=== PATIENT | female | born 1950 | race Caucasian/White ===

== ENCOUNTER 2024-09-11 09:50 | Inpatient (IN) | payer OTHER, SELFPAY ==
[2024-09-11] VITALS (12 sets, daily range): BP systolic 114–171; BP diastolic 55–87; PULSE 81–105; RESP 12–22; TEMP 36.6–37.6; O2SAT 93–100; BMI 22.4
--- NOTE | 2024-09-11 | ECG_ITS ---
Test Reason : stroke Blood Pressure : */* mmHG Vent. Rate : 85 BPM Atrial Rate : 85 BPM P-R Int : 174 ms QRS Dur : 68 ms QT Int : 346 ms P-R-T Axes : 71 -6 88 degrees QTcB Int : 411 ms Normal sinus rhythm Low voltage QRS Cannot rule out Anteroseptal infarct , age undetermined Abnormal ECG No previous ECGs available Referred By: Radha Florse Electronically Signed By: ANTWON SALINAS
--- NOTE | ~2024-09-11 | MR_ITS ---
EXAMINATION: MR BRAIN WITHOUT CONTRAST CLINICAL INFORMATION: Dysarthria, rule out CVA. COMPARISON: None available. Correlation made with CT angiogram head and neck performed earlier same day. TECHNIQUE: MRI of the brain was obtained using routine sequences without contrast. Examination performed on a Siemens 1.5 Mel high-field unit. FINDINGS: There is no diffusion restriction. There is no intracranial hemorrhage, acute infarction, mass effect, or edema. Lateral and third ventricles are dilated somewhat out of proportion to sulcal and cisternal prominence, a finding likely representing central volume loss although a component of communicating hydrocephalus is not excluded. No shift of midline. No abnormal hemosiderin deposition is identified. There are a scattered punctate and mildly confluent foci of white matter T2 hyperintensity in the periventricular, subcortical, and hemispheric deep white matter, and central iggy. These foci are nonspecific but statistically most likely relate to small vessel ischemic changes. Midline structures appear normally formed. The pituitary gland appears normal. Posterior fossa structures appear normal. Cerebellar tonsils are appropriately located. Major flow voids are preserved within the skull base. The globes and orbital contents demonstrate right lens replacement. They are otherwise normal in appearance. Paranasal sinuses are clear bilaterally. The mastoids and tympanic cavities are normally aerated. Extracranial soft tissues demonstrate no abnormalities. No suspicious bone marrow changes are evident. Atlantoaxial joint demonstrates moderate degenerative arthrosis. MR/MR head/brain wo con IMPRESSION: 1. No evidence of intracranial hemorrhage, acute infarction, mass effect, or edema. 2. Ventricles mildly dilated out of proportion to sulcal/cisternal prominence, most likely representing central volume loss. A component of communicating hydrocephalus is not excluded. 3. [id number] changes of small vessel ischemia. Electronically signed by: Miguel Calabrese MD 09/11/2024 03:38 PM EDT
--- NOTE | ~2024-09-11 | CT_ITS ---
EXAMINATION: CTA NECK WITH CONTRAST (STROKE) CTA BRAIN WITH CONTRAST (STROKE) CLINICAL INFORMATION: Dysarthria. COMPARISON: None available. TECHNIQUE: CTA of the head and neck was performed in the axial plane from the mediastinum to the skull vertex using 70 mL Omnipaque 350 intravenous contrast. Additional reformatted multiplanar images including maximum intensity projection MIP images are generated on the CT workstation. This CT examination was performed using dose optimization techniques as appropriate, variously including the following: *Automated exposure control *Adjustment of mA and/or kV according to patient size (this includes techniques or standardized protocols for targeted exams where dose is matched to indication/reason for exam; i.e. extremities or head) *Use of iterative reconstruction technique DLP: 1425 mGy centimeter. FINDINGS: The degree of stenosis determined by criteria similar to NASCET. Brain: No acute intracranial hemorrhage, mass effect, midline shift, hydrocephalus or herniation. Bilateral multifocal patchy and confluent deep periventricular white matter hypodensity involving centrum semiovale and walton radiata. Prominence of the left lateral ventricle asymmetric with respect to the right side. Zamora-white matter differentiation is normal. Bony calvarium is intact. Old traumatic deformity, nasal bones. No air-fluid levels in the paranasal sinuses. Tympanic cavities and mastoid cells are aerated. High riding left internal jugular bulb. Chest CTA: Inadequate arterial phase acquisition. The thoracic aortic arch demonstrates normal caliber and enhancement pattern without intimal flap or focal stenosis. Mild calcified plaques in the inferior aspect. Neck CTA: Right CCA: Normal patency. No focal stenosis. No intimal flap. Right ICA: Minimal calcified plaque. Normal patency. No focal stenosis. No intimal flap. Left CCA: Normal patency. No focal stenosis. No intimal flap. Left ICA: Minimal calcified plaque. Normal patency. No focal stenosis. No intimal flap. Tortuosity in the proximal segment. Retropharyngeal trajectory. V1/V2 segment: Normal patency. No focal stenosis. No intimal flap. Right vertebral artery is slightly dominant. The origin is directly from the subclavian artery. Brain CTA: Anterior cerebral circulation: ICAs: Normal patency. No focal stenosis. No abrupt cut off. MCA's: Normal patency. No focal stenosis. No abrupt cut off. Bifurcation/trifurcation demonstrated normal vascular irregularity. ACAs: Normal patency. No focal stenosis. No abrupt cut off. Ophthalmic arteries demonstrated normal patency without vascular irregularity at the origin. Anterior communicating artery is patent. Posterior communicating arteries are patent. Posterior cerebral circulation: V3/V4 segments: Normal patency. No focal stenosis. No intimal flap. Right vertebral artery is dominant. Posterior inferior cerebellar arteries are patent. The basilar artery is patent with the diminished diameter without intimal flap. Superior cerebellar arteries are patent. senior integration architect: Hypoplastic/atretic P1 segments. No focal stenosis. No abrupt cut off. Ancillary findings: Main cerebral venous sinuses are patent without gross intraluminal filling defects. Subtle pulmonary mosaic pattern. Edmond deformity apex at C5. Old traumatic deformity, nasal bones. CT/CT angio head neck IMPRESSION: No main cerebral artery occlusion or embolus. No high degree stenosis or dissection. Questionable origin, left SUPPORT SERVICES TECH. Edmond deformity, cervical spine. Consider rheumatoid arthritis. This critical test result is communicated to: Dr. Liseth Guzman via [employer] connect at 12:25 PM on September 11, 2024. Electronically signed by: Dayne Pinto MD 09/11/2024 12:34 PM EDT
[2024-09-11 10:57] LABS: MANUAL DIFF FLAG NO
[2024-09-11 10:59] LABS: Basophils Absolute Auto 0.1 X10*3/uL (0.0-0.2); Basophils Percent Auto 0.7 % (0-2); Eosinophils Percent Auto 0.1 % (0-4); Hematocrit 38.4 % (37.0-47.0); Hemoglobin 12.7 g/dl (12.0-16.0); Imm Gran Abs Auto 0.03 X10*3/uL (0.00-0.03); Imm Gran Pct Auto 0.4 % (0.0-0.4); Lymphocytes Absolute Auto 1.1 X10*3/uL (1.2-4.9); Lymphocytes Percent Auto 14.4 % (20-40); Mean Corpuscular HGB Conc 33.1 g/dl (31.0-35.0); Mean Corpuscular Hemoglobin 31.1 pg (27.0-33.0); Mean Corpuscular Volume 94.1 fL (80.0-98.0); Mean Platelet Volume 9.8 fL (9.4-12.3); Monocytes Absolute Auto 0.6 X10*3/uL (0.1-1.2); Monocytes Percent Auto 8.1 % (2-11); Neutrophils Absolute Auto 5.6 x10*3/uL (2.0-8.3); Neutrophils Percent Auto 76.3 % (45-73); Platelet Count 269 X10*3/uL (160-400); Red Blood Count 4.08 X10*6/uL (4.20-5.50); Red Cell Distribution Width 13.5 % (11.0-16.0); White Blood Count 7.3 X10*3/uL (4.8-10.8)
[2024-09-11 11:04] LABS: Prothrombin Time 11.3 SEC (10.9-12.4)
[2024-09-11 11:07] LABS: Partial Thromboplastin Time 27.5 SEC (26.0-36.8)
[2024-09-11 11:14] LABS: Anion Gap 13 (12-20); Blood Urea Nitrogen 14 mg/dL (9-16); Calcium 9.1 mg/dL (8.4-10.2); Carbon Dioxide 24 mmol/L (22-29); Chloride 106 mmol/L (96-108); Cholesterol 167 mg/dL (<200); Creatinine Clr Calc Pharmacy 74.9; Estimated Glomerular Filt Rate > 60; Glucose Random 104 mg/dL (60-115); HDL Cholesterol 85 mg/dL (>40); LDL Cholesterol Calculated 62 mg/dL (<100); Potassium 3.8 mmol/L (3.3-5.1); Sodium 139 mmol/L (135-145); Triglycerides 103 mg/dL (<150)
--- NOTE | 2024-09-11 11:15 | ED_ITS ---
HPI - Neuro Symptoms/Deficit General Chief Complaint: Stroke Stated Complaint: Speech issues, trouble walking Time Seen by Provider: 09/11/24 11:03 Source: patient and family Mode of arrival: wheelchair Limitations: no limitations History of Present Illness ED Provider: Dr. Liseth Guzman HPI Narrative: Patient comes to the emergency room accompanied by her daughter. Patient states that yesterday at 18:30 (17 hours ago), patient was sitting at home, and when she tried to get out of the chair/couch, she noted that she not have balance. Patient states that she kept leaning towards the left side and was unable to walk straight. Patient needed assistance to walk otherwise she would have fallen. Patient denies any falls or any blood thinners. Patient states that yesterday while this was all happening, while she was trying to explain things to her family, patient had aphasia and dysarthria. The patient's daughter who is at bedside states that 2 days ago, the patient's reported that the patient was having trouble with daily tasks, seemed confused, waxing and waning so they did not think much of it. The in the morning, the patient had improvement in her speech, aphasia dysarthria nearly resolved. However, patient still had trouble walking, leaning towards the left, no falls. Related Data Allergies Allergy/AdvReac Type Severity Reaction Status Date / Time No Known Allergies Allergy Verified 09/11/24 10:02 Review of Systems 2 Review of Systems: Constitutional : No Weight loss, No Fever, No Chills, No Night Sweats, No Fatigue, No Malaise ENT/Mouth : No Hearing loss, No Ear Pain, No Nasal Congestion, No Sinus Pain, No Hoarseness, No sore throat, No Rhinorrhea, No Swallowing Difficulty Eyes: No Eye Pain, No Swelling, No Redness, No Foreign Body, No Discharge, No Vision Changes Cardiovascular : No Chest Pain, No SOB, No Dyspnea on Exertion, No Orthopnea, No Edema, No Palpitations Respiratory : No Cough, No Sputum, No Wheezing, No Smoke Exposure, No Dyspnea Gastrointestinal : No Nausea, No Vomiting, No Diarrhea, No Constipation, No abdominal Pain, No Hematochezia, No Melena Genitourinary : no irregular bleeding, No Dysuria, No Urinary Frequency, No Hematuria, No Urinary Incontinence, No Urgency, No Flank Pain, No Urinary Flow Changes, No Hesitancy Musculoskeletal : No joint pain, No Myalgias, No Joint Swelling Skin : No Skin Lesions, No rash Neuro : No headache, no dizziness, patient reported intermittent episodes of aphasia and dysarthria, patient states that her gait very wobbly and leans towards the left side, ataxia present bilaterally lower extremity Psych : No Anxiety/Panic, No Depression, No SI/HI/AH/VH, No Social Issues, Heme/Lymph: No Bruising, No Bleeding,No Lymphadenopathy Endocrine : No Polyuria, No Polydipsia, No Temperature Intolerance [facility] Past Medical History Medical History (Updated 09/11/24 @ 13:58 by Liseth Guzman MD) Hypertension Social History Social History Alcohol intake: current Alcohol intake frequency: holidays/special occasions only Smoked in Last 30 Days: No Use of substances other than those prescribed or required for medical reasons: No Advance Directives: No Advance Directives Information Provided: No Physical Exam 2 Vital Signs: Vital Signs: Last Vital Signs Temp 98.2 F 09/11/24 13:39 Pulse 88 09/11/24 13:39 Resp 18 09/11/24 13:39 BP 135/70 09/11/24 13:39 Pulse Ox 99 09/11/24 13:39 O2 Del Method Room Air 09/11/24 13:39 BMI result Body Mass Index 22.4 Const: Other: Appearance: Alert. Oriented X3. Anxious Eyes: Pupils equal, round and reactive to light. ENT: Pharynx normal. Neck: Normal inspection. Neck supple. No lymph nodes noted. No crepitus CVS: Normal heart rate and rhythm. Pulses normal. Normal S1 and S2 Respiratory: No respiratory distress. Breath sounds normal. No Wheezing. No rales Abdomen: Soft and nontender. No rigidity. No distention. Skin: Skin warm and dry. Normal skin color. Normal skin turgor. Extremities: No lower extremity edema. No Lacerations. No Rash Neuro: Oriented X 3. No motor deficit. No sensory deficit. Patient has 5/5 strength in bilateral upper extremities, 3/5 in bilateral lower extremities and bilateral UE ataxia. Patient is able to sit on the bed, Patient is able to stand but patient is able to give very small steps wobbling and patient is very unsteady Psych: calm, cooperative, tearful Course Course Course Narrative: It has been 17 hours since the patient has had symptoms. It is possible that patient may have a posterior stroke. However, patient is outside of the window of treatment by now. Patient was given aspirin CTA pending Medications Administered Discontinued Medications Generic Name Dose Route Start Last Admin Trade Name Albino PRN Reason Stop Dose Admin Iohexol 100 ml 09/11/24 12:07 09/11/24 12:07 Iohexol 350 Mg/Ml 100 Ml Infus..Btl IV 09/11/24 12:08 70 ml ONCE ONE Administration Medical Decision Making Medical Decision Making [facility] Narrative: My interpretation of labs: No significant abnormality in patient's hematology chemistry or urinalysis CT and CTA did not show any acute abnormality. We tried to ambulate the patient, patient is unable to give steps forward, patient has a wobbly gait, without assistance she would likely fall. This is all acute starting from less than 24 hours ago. I discussed the above-mentioned with the patient and her daughter. Patient does not really want to stay. However, she admits that she can not barely walk and this is something new that started less than 24 hours ago with no clear reason. I discussed the patient with Dr. Stephen and SAMEER Jackson Patient being admitted Differential Diagnosis Differential Diagnoses: The differential diagnosis associated with the presentation includes (UTI, CVA, TIA, intracranial bleed) Admission/Observation Consideration of admission/observation: Escalation of care including admission/observation considered Consult Healthcare Provider Management of the patient was discussed with: Hospitalist (I discussed the patient with Dr. Stephen) Lab Data [facility] Lab Attestation statement: I reviewed the patient's lab results. 09/11/24 10:52 09/11/24 10:52 Labs: Lab Results 09/11/24 09/11/24 Range/Units 10:52 12:29 WBC 7.3 (4.8-10.8) X10*3/uL RBC 4.08 L (4.20-5.50) X10*6/uL Hgb 12.7 (12.0-16.0) g/dl Hct 38.4 (37.0-47.0) % MCV 94.1 (80.0-98.0) fL MCH 31.1 (27.0-33.0) pg MCHC 33.1 (31.0-35.0) g/dl RDW 13.5 (11.0-16.0) % Plt Count 269 (160-400) X10*3/uL MPV 9.8 (9.4-12.3) fL Immature Gran % (Auto) 0.4 (0.0-0.4) % Neut % (Auto) 76.3 H (45-73) % Lymph % (Auto) 14.4 L (20-40) % Warrick % (Auto) 8.1 (2-11) % Eos % (Auto) 0.1 (0-4) % Baso % (Auto) 0.7 (0-2) % Lymph # (Auto) 1.1 L (1.2-4.9) X10*3/uL Warrick # (Auto) 0.6 (0.1-1.2) X10*3/uL Eos # (Auto) 0.0 (0.0-0.4) X10*3/uL Baso # (Auto) 0.1 (0.0-0.2) X10*3/uL Abs Immat Gran (auto) 0.03 (0.00-0.03) X10*3/uL Absolute Neuts (auto) 5.6 (2.0-8.3) x10*3/uL Absolute Nucleated RBC 0.000 (0.0-0.012) X10*3/uL Nucleated RBC % (auto) 0.0 (0.0-0.2) /100WBC PT 11.3 (10.9-12.4) SEC INR 1.0 (0.9-1.1) APTT 27.5 (26.0-36.8) SEC Sodium 139 (135-145) mmol/L Potassium 3.8 (3.3-5.1) mmol/L Chloride 106 (96-108) mmol/L Carbon Dioxide 24 (22-29) mmol/L Anion Gap 13 (12-20) BUN 14 (9-16) mg/dL Creatinine 0.66 (0.5-1.4) mg/dL Estim Creat Clear Calc 74.9 Estimated GFR > 60 Random Glucose 104 (60-115) mg/dL Calcium 9.1 (8.4-10.2) mg/dL Troponin I High Sens < 2.7 (<3.5-17.0) ng/L Triglycerides 103 (<150) mg/dL Cholesterol 167 (<200) mg/dL LDL Cholesterol, Calc 62 (<100) mg/dL HDL Cholesterol 85 (>40) mg/dL Urine Color Yellow Urine Appearance Clear Urine pH 6.0 (5.0-9.0) Ur Specific Beauty >= 1.030 H (1.005-1.025) Urine Protein Negative (Neg-Trace) mg/dL Urine Glucose (UA) Negative (Negative) mg/dL Urine Ketones Negative (Negative) mg/dL Urine Blood Negative (Negative) Urine Nitrite Negative (Negative) Ur Leukocyte Esterase Trace H (Negative) Urine RBC 0-2 (0-2) /HPF Urine WBC 0-5 (0-5) /HPF Ur Squamous Epith Cells 0-2 (0-2) /HPF Urine Bacteria None Seen (None Seen) Hyaline Casts 0-2 (0-2) /LPF Independent Interpretation I performed an independent interpretation of an: CT Scan Radiology Impression Discussion of test interpretation with radiology: I have reviewed the radiologist's reading. Radiologist Impression: Brain: No acute intracranial hemorrhage, mass effect, midline shift, hydrocephalus or herniation. Bilateral multifocal patchy and confluent deep periventricular white matter hypodensity involving centrum semiovale and walton radiata. Prominence of the left lateral ventricle asymmetric with respect to the right side. Zamora-white matter differentiation is normal. Bony calvarium is intact. Old traumatic deformity, nasal bones. No air-fluid levels in the paranasal sinuses. Tympanic cavities and mastoid cells are aerated. High riding left internal jugular bulb. Chest CTA: Inadequate arterial phase acquisition. The thoracic aortic arch demonstrates normal caliber and enhancement pattern without intimal flap or focal stenosis. Mild calcified plaques in the inferior aspect. Neck CTA: Right CCA: Normal patency. No focal stenosis. No intimal flap. Right ICA: Minimal calcified plaque. Normal patency. No focal stenosis. No intimal flap. Left CCA: Normal patency. No focal stenosis. No intimal flap. Left ICA: Minimal calcified plaque. Normal patency. No focal stenosis. No intimal flap. Tortuosity in the proximal segment. Retropharyngeal trajectory. V1/V2 segment: Normal patency. No focal stenosis. No intimal flap. Right vertebral artery is slightly dominant. The origin is directly from the subclavian artery. Brain CTA: Anterior cerebral circulation: ICAs: Normal patency. No focal stenosis. No abrupt cut off. MCA's: Normal patency. No focal stenosis. No abrupt cut off. Bifurcation/trifurcation demonstrated normal vascular irregularity. ACAs: Normal patency. No focal stenosis. No abrupt cut off. Ophthalmic arteries demonstrated normal patency without vascular irregularity at the origin. Anterior communicating artery is patent. Posterior communicating arteries are patent. Posterior cerebral circulation: V3/V4 segments: Normal patency. No focal stenosis. No intimal flap. Right vertebral artery is dominant. Posterior inferior cerebellar arteries are patent. The basilar artery is patent with the diminished diameter without intimal flap. Superior cerebellar arteries are patent. masking machine operator: Hypoplastic/atretic P1 segments. No focal stenosis. No abrupt cut off. Ancillary findings: Main cerebral venous sinuses are patent without gross intraluminal filling defects. Subtle pulmonary mosaic pattern. [place] deformity apex at C5. Old traumatic deformity, nasal bones. CT/CT angio head neck IMPRESSION: No main cerebral artery occlusion or embolus. No high degree stenosis or dissection. 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 [place] deformity, cervical spine. Consider rheumatoid arthritis. NIH Stroke Scale Internal: Initial- Upon Arrival Level of Consciousness: Alert Level of Consciousness Questions: Answers both questions correctly Level of Consciousness Commands: Performs both tasks correctly Best Gaze: Normal Visual: No visual loss Facial Palsy: Normal Motor Arm (Right): No drift Motor Arm (Left): No drift Motor Leg (Right): No drift Motor Leg (Left): No drift Limb Ataxia: Present in two limbs Sensory: Normal Best Language: No aphasia Dysarthia: Normal Extinction and Inattention: No abnormality Score: 2 Critical Care Time Critical Care Time Critical Care Time: Yes Total Critical Care Time: 60 Attestation: I have personally provided critical care time. Time includes review of lab data, radiology results, discussion with consultants, and monitoring for potential decompensation. Intervention performed as documented. Discharge Plan Discharge Clinical Impression: Ataxia Patient Disposition: Admitted As Inpatient Print Language: Tamazight
[2024-09-11 11:22] LABS: Troponin-I High Sensitivity < 2.7 ng/L (<3.5-17.0)
[2024-09-11 11:28] LABS: Stroke Lab Use COMPLETE
--- NOTE | 2024-09-11 11:34 | PC.NURSE ---
Patient alert and oriented. Daughter at this bedside. teletypesetter monitor maintained and NSR noted. No droop noted. Tongue midline. Difficulty with word choosing. Strength appears equal to upper extremities. No drift noted to all 4 extremities. Attempted to ambulate with poor response. Able to shuffle a few steps with difficulty. Respirations even and non-labored. Abdomen soft, non-tender with positive bowel sounds. Positive pedal pulses with no edema. Sent for CT
[2024-09-11] MEDS: iohexoL 350 MG/ML 100 ML INFUS..BTL IV (12:07)
[2024-09-11 12:40] LABS: Appearance Urine Clear; Color Urine Yellow; Glucose Urine UA Negative (Negative); Leukocyte Esterase Urine Trace (Negative); Nitrite Urine Negative (Negative); Specific Gravity - Urine >= 1.030 (1.005-1.025); UMIC TRIGGER UACC YES; Urine Blood Negative (Negative); Urine Ketones Negative (Negative); Urine Protein Negative (Neg-Trace)
[2024-09-11 12:45] LABS: Bacteria Urine None Seen (None Seen); Hyaline Casts Urine 0-2 /LPF (0-2); RBC Urine 0-2 /HPF (0-2); Squamous Epithelial Cell Urine 0-2 /HPF (0-2); WBC Urine 0-5 /HPF (0-5)
--- OUTSIDE RECORDS SUMMARY | 2024-09-11 13:29 | XMS_ITS | Clinical Summary ---
Author Organization [facility] [employer] [facility] Address [address] [place] [address] Phone Care Team Providers Care Tribal Judge Name Role Phone Tirso Higgins MD Primary Care Provider [phone] Allergies Active Allergy Reactions Criticality Noted Date Comments Tree Nuts Swelling High 08/25/2012 Medications calcium carbonate-vitamin D3 1,000 mg-20 mcg (800 unit) tablet Take 1 tablet by mouth 2 (two) times a day. 4 Active meloxicam (MOBIC) 15 mg tablet Take 1 tablet (15 mg total) by mouth 1 (one) time each day. 4 Active atorvastatin (LIPITOR) 20 mg tabletIndications:M ixed hyperlipidemia Take 1 tablet (20 mg total) by mouth 1 (one) time each day. 90 each 1 5 11/26/19 25 Active lisinopriL (PRINIVIL,ZESTRIL) 5 mg tabletIndications:P rimary hypertension Take 1 tablet (5 mg total) by mouth 1 (one) time each day. 90 each 1 5 11/26/19 25 Active amLODIPine (NORVASC) 5 mg tablet Take 1 tablet (5 mg total) by mouth 1 (one) time each day. 90 tablet 1 5 Active levothyroxine (SYNTHROID, LEVOTHROID) 100 mcg tabletIndications:H ypothyroidism, unspecified TAKE 1 TABLET DAILY 90 tablet 5 Active Active Problems Problem Noted Date Diagnosed Date Branch retinal vein occlusion of left eye (CMS/H CC V28) 10/20/2023 Osteopenia 09/26/2023 Vitreous hemorrhage of right eye (CMS/HCC V24, C [place] V28) 09/06/2022 HTN (hypertension) 08/16/2018 Left wrist pain 05/02/2017 Hyperlipidemia 01/31/2014 Insomnia 06/16/2010 Colonic adenoma 03/21/2009 Overview (04/23/2024): Looney Carpal tunnel syndrome 03/05/2008 Overview (04/23/2024): Bilat Diagnosis unknown 05/26/2006 Dupuytren's contracture 12/07/2005 Overview (04/23/2024): Laureano; left Hypothyroidism 10/25/2005 Encounters Date Type Department Care Team Description 08/25/2024 Telephone [facility] Cardiology [facility] [address] [place] [address] Tirso Higgins MD from Last 3 Months Immunizations Name Administration Dates Next Due Influenza trivalent, 0.5mL ( Fluzone High-dose) 65yo and older 02/27/2019 Moderna SARS-CoV-2 COVID-19, mRNA, LNP-S, preservative free 07/10/2020 Pneumococcal conjugate 13 va lent (Prevnar 13, PCV13) 2mo and older 11/03/2016 Pneumococcal polysaccharide 23 valent (Pneumovax 23) 2yo and older 12/05/2017 Td Tetanus diptheria (Tdvax) 7yo and older 12/05 Tdap Tetanus diptheria acell ular pertussis (Boostrix; Adacel) 7yo and older 05/31/2007 Zoster Live 10/05/2012 Zoster recombinant (Shingrix) 19yo and older Surgical History Surgery Date Site/Laterality Comments OTHER SURGICAL HISTORY 01/2008 PROCEDURE: MAMMOGRAM; COMMENT: neg OTHER SURGICAL HISTORY 05/2006 PROCEDURE: PAP SMEAR (1 SLIDE); COMMENT: Akash neg OTHER SURGICAL HISTORY 10/2018 PROCEDURE: HISTORICAL CA BASAL CELL; COMMENT: BCC 11/08 nose (nodular) COLONOSCOPY 04/08/2016 PROCEDURE: HISTORICAL COLONOSCOPY; COMMENT: adenomas, tics and hemorrhoids; repeat in 3 yrs COLONOSCOPY 08/25/2012 PROCEDURE: HISTORICAL COLONOSCOPY; COMMENT: adenoma and tics; repeat in 3 yrs COLONOSCOPY 06/12/2009 PROCEDURE: HISTORICAL COLONOSCOPY; COMMENT: adenomas and diverticulosis; repeat in three years COLONOSCOPY 02/2004 PROCEDURE: HISTORICAL COLONOSCOPY; COMMENT: diverticulosis COLONOSCOPY 02/2001 PROCEDURE: HISTORICAL COLONOSCOPY; COMMENT: Katherine CHANDRA;04; COLONOSCOPY 12/27/2019 PROCEDURE: HISTORICAL COLONOSCOPY; COMMENT: Diminutive colonic polyps x2, next colonoscopy indicated in 5 years. Pathology: Tubular adenoma x2. Medical History Medical History Date Comments Contracture of palmar fascia 12/07/2005 DX: Contracture of palmar fascia; COMMENT: left Carpal tunnel syndrome 03/05/2008 DX:Carpal tunnel syndrome; COMMENT: Bilat Colonic adenoma 03/21/2009 DX:Colonic adeno ma Unspecified hypothyroidism 10/25/2005 DX:Un specified hypothyroidism Hyperlipidemia 01/31/2014 DX:Hyperlipidemi a HTN (hypertension) 08/16/2018 DX:HTN (hyper tension) History of basal cell carcinoma 11/08/2018 DX:History of basal cell carcinoma; COMMENT: BCC 11/08 nose (nodular) Family History Medical History Relation Name Comments No Known Problems Daughter Colon cancer Father Hypertension Father Arthritis Mother Cataracts Mother Hypertension Mother Other Dermatological Disorders Mother Little spots on her face Ovarian cancer Sister No Known Problems Son Blindness Neg Hx Breast cancer Neg Hx Glaucoma Neg Hx Macular degeneration Neg Hx Strabismus Neg Hx Relation Name Status Comments Daughter Alive Father (Age 75) MVA Mother (Age 75) Alzehimers Sister Son Alive Social History Tobacco Use Types Packs/Day Years Used Date Smoking Tobacco: Never Smokeless Tobacco: Never Tobacco Cessation:Counseling Given: Not Answered Alcohol Use Standard Drinks/Week Comments Yes 0 (1 standard drink = 0.6 oz pur e alcohol) Comments No Sex and Gender Information Value Date Recorded Sex Assigned at Female 03/30/2024 12:10 PM EST Legal Sex Female 12:13 AM EST Gender Identity Female 03/30/2024 12:10 PM EST Sexual Orientation Straight 03/30/2024 12 :10 PM EST Obstetrics History Last Filed Vital Signs Vital Sign Reading Time Taken Comments Blood Pressure 128/56 05/29/2024 10:17 AM EST Pulse 96 05/29/2024 10:17 AM EST Temperature 36.4 ??C (97.6 ??F) 04/04/2024 10:[address] Respiratory Rate - - Oxygen Saturation 98% 04/04/2024 10:52 AM EST Inhaled Oxygen Concentration - - Weight 65 kg (143 lb 4.8 oz) 05/29/2024 10:17 AM EST Height 170.2 cm (5' 7 ) 05/29/2024 10:17 AM EST Body Mass Index 22.44 05/29/2024 10:17 AM EST Plan of Treatment Health Maintenance Due Date Last Done Comments Zoster Vaccines (3 of 3) 06/16/2020 04/21/2020, 09/20 Depression Screening 05/01/2022 Falls Risk Assessment 05/01/2022 Social Influencers of Health Screening 05/01/2022 Medicare Annual Wellness Visit 03/22/2023 03/22/2022 COVID-19 Vaccine ( season) 2024 05/02/2021, 08/07/2020, 07/10/2020 Colorectal Cancer Screening: Colonoscopy 12/26/2024 12/27/2019 Hypertension/CHF/CAD Annual BMP Blood Test 05/29/2025 05/29/2024, 09/26/2023, 09/26/2023 Breast Cancer Screening 04/13/2026 04/13/20 24, 03/24/2023, 03/22/2022, Additional history exists RSV Immunization Adult Patients (1 - 1-dose 75+ series) 09/16/2026 DTaP,Tdap,and Td Vaccines (3 - Td or Tdap) 12/06/2027 12/05/2017, 05/31/2007 Cholesterol Screening (Lipid Panel) 09/25/2028 09/26/2023, 09/26/2023 Osteoporosis Screening (Bone Density Screening) 06/15/2032 06/15/2022, 02/27/2019, 12/07/2016 Hepatitis C Screening Completed 10/05/2012 Pneumococcal Vaccine: 50+ Years Completed 12/05/2017, 11/03/2016 Influenza Vaccine Discontinued 02/27/2019 HIB Vaccines Aged Out No longer eligi ble based on patient's age to complete this topic HPV Vaccines Aged Out No longer eligi ble based on patient's age to complete this topic Hepatitis A Vaccines Aged Out No long er eligible based on patient's age to complete this topic Hepatitis B Vaccines Aged Out No long er eligible based on patient's age to complete this topic IPV Vaccines Aged Out No longer eligi ble based on patient's age to complete this topic MMR Vaccines Aged Out No longer eligi ble based on patient's age to complete this topic Meningococcal ACWY Vaccine Aged Out N o longer eligible based on patient's age to complete this topic Meningococcal B Vaccine Aged Out No l onger eligible based on patient's age to complete this topic RSV Immunization Patients Under 20 months Aged Out No longer eligible based on patient's age to complete this topic Varicella Vaccines Aged Out No longer eligible based on patient's age to complete this topic Procedures Procedure Name Priority Date/Time Associated Diagnosis Comments COMPREHENSIVE METABOLIC PANEL Routine 05/29/2024 10:51 AM EST Mixed hyperlipidemia MG MAMMO DIGITAL SCREENING W ADRIA BILAT Routine 04/13/2024 11:06 AM EST Encounter for screening mammogram for breast cancer LIPID PANEL Routine 09/26/2023 DXA BONE DENSITY STUDY 1+ SITS AXIAL SKEL Routine 06/15/2022 10:22 AM EST Other specified disorders of bone density and structure, unspecified site COLONOSCOPY Routine 12/27/2019 HEPATITIS C SCREENING Routine 10/05/2012 from Last 3 Months or Most Recently Relevant to Health Maintenance Results * (ABNORMAL) Comprehensive metabolic panel (05/29/2024 10:51 AM EST) Sodium 137 133 - 145 mmol/L LAB CHEMISTRY METHOD 05/29/2024 3:11 PM EST [facility] Potassium 4.7 3.5 - 5.5 mmol/L LAB CHEMISTRY METHOD 05/29/2024 3:11 PM EST [facility] Chloride 105 96 - 110 mmol/L LAB CHEMISTRY METHOD 05/29/2024 3:11 PM [facility] CO2 24 21 - 32 mmol/L LAB CHEMISTRY METHOD 05/29/2024 3:11 PM [facility] Anion Gap 8 3 - 11 LAB CHEMISTRY METHOD 05/29/2024 3:11 PM [facility] Glucose 112(H) 70 - 100 mg/dL LAB CHEMISTRY METHOD 05/29/2024 3:11 PM [facility] BUN 14 5 - 25 mg/dL LAB CHEMISTRY METHOD 05/29/2024 3:11 PM [facility] Creatinine 0.70 0.50 - 1.10 mg/dL LAB CHEMISTRY METHOD 05/29/2024 3:11 PM [facility] eGFR 92 >=60 mL/min/1. 73m2 LAB CHEMISTRY METHOD 05/29/2024 3:11 PM [facility] Comment:Calculation based on the??Chronic Kidney Disease Epidemiology Collaboration (CKD-EPI) equation refit??without adjustment for race. BUN/Creatinine Ratio 20.0 LAB CHEMISTRY METHOD 05/29/2024 3:11 PM [facility] Calcium 9.4 8.5 - 10.5 mg/dL LAB CHEMISTRY METHOD 05/29/2024 3:11 PM [facility] AST (SGOT) 26 10 - 42 unit/L LAB CHEMISTRY METHOD 05/29/2024 3:11 PM [facility] ALT (SGPT) 29 10 - 60 unit/L LAB CHEMISTRY METHOD 05/29/2024 3:11 PM [facility] Alkaline Phosphatase 70 42 - 121 unit/L LAB CHEMISTRY METHOD 05/29/2024 3:11 PM [facility] Total Protein 7.0 6.0 - 8.0 g/dL LAB CHEMISTRY METHOD 05/29/2024 3:11 PM [facility] Albumin 4.2 3.2 - 5.0 g/dL LAB CHEMISTRY METHOD 05/29/2024 3:11 PM [facility] Total Bilirubin 0.9 0.0 - 1.4 mg/dL LAB CHEMISTRY METHOD 05/29/2024 3:11 PM EST [facility] Blood Venous blood specimen / Unknown Venipuncture / Unknown 05/29/2024 10:51 AM EST 05/29/2024 10:51 AM EST us Elaine Jamil NP LAB BLOOD ORDERABLES Final Resul t [facility] [address] [place] [address], [place] [phone] * MG Mammo Digital Screening w Adria bilat (04/13/2024 11:06 AM EST) Anatomical Region Laterality Modality Breast Bilateral Mammography 04/13/2024 11:0 2 AM EST Impressions 04/13/2024 11:10 AM EST No mammographic evidence of malignancy. ?? No suspicious interval change. A negative mammogram in the presence of a clinically suspicious palpable abnormality does not preclude the possibility of malignancy or alter the indications for biopsy. ASSESSMENT: ?? BI-RADS 1: NEGATIVE RECOMMENDATION(S): 1: Routine screening mammogram BILATERAL in 1 year. -------- FINAL REPORT -------- Dictated By: Joe Arteaga Dictated Date: 04/13/2024 11:02 ET Assigned Physician: Joe Arteaga Reviewed and Electronically Signed By: Joe Arteaga Signed Date: 04/13/2024 11:10 ET Workstation ID: [id number] Transcribed By: Self Edit Transcribed Date: 04/13/2024 11:02 ET Narrative 04/13/2024 11:10 AM EST EXAM: ??SCREENING MAMMOGRAPHY, BILATERAL HISTORY: ??SCREENING. ??No additional history. COMPARISON: ??03/24/2023, 03/22/2022, 03/17/2021, 03/14/2020 TECHNIQUE: Synthesized CC and MLO projections of each breast. ??Tomosynthesis of each breast in the CC and MLO projections. ADDITIONAL IMAGING: None Computer-aided detection was employed with the iCAD ??profound AI 3-D. TISSUE DENSITY: There are scattered areas of fibroglandular density. (BI-RADS category B) FINDINGS: RIGHT BREAST: No suspicious mass. No suspicious calcification. No distortion. ?? No additional suspicious right breast findings LEFT BREAST: No suspicious mass. No suspicious calcification. No distortion. ?? No additional suspicious left breast findings Procedure Note Joe Arteaga MD - 04/13/2024 EXAM: SCREENING MAMMOGRAPHY, BILATERAL HISTORY: SCREENING. No additional history. COMPARISON: 03/24/2023, 03/22/2022, 03/17/2021, 03/14/2020 TECHNIQUE: Synthesized CC and MLO projections of each breast.Tomosynthesis of each breast in the CC and MLO projections. ADDITIONAL IMAGING: None Computer-aided detection was employed with the iCAD profound AI 3-D. TISSUE DENSITY: There are scattered areas of fibroglandular density.(BI-RADS category B) FINDINGS: RIGHT BREAST: No suspicious mass. No suspicious calcification. No distortion. Noadditional suspicious right breast findings LEFT BREAST: No suspicious mass. No suspicious calcification. No distortion. Noadditional suspicious left breast findings IMPRESSION: No mammographic evidence of malignancy. No suspicious interval change. A negative mammogram in the presence of a clinically suspicious palpableabnormality does not preclude the possibility of malignancy or alter theindications for biopsy. ASSESSMENT: BI-RADS 1: NEGATIVE RECOMMENDATION(S): 1: Routine screening mammogram BILATERAL in 1 year. -------- FINAL REPORT -------- Dictated By: Joe Arteaga Dictated Date: 04/13/2024 11:02 ET Assigned Physician: Joe Arteaga Reviewed and Electronically Signed By: Joe Arteaga Signed Date: 04/13/2024 11:10 ET Workstation ID: [id number] Transcribed By: Self Edit Transcribed Date: 04/13/2024 11:02 ET us Tirso Higgins MD IMG BI PROCEDURES Final R esult * Lipid panel (09/26/2023) LDL/HDL Ratio 2 0 - 4 Triglycerides 65 0 - 150 mg/dL Cholesterol 195 0 - 200 mg/dL HDL 98 >=40 mg/dL LDL Cholesterol 84 0 - 100 mg/dL Blood Venous blood specimen / Unknown us Historical Provider LAB BLOOD ORDERABLES Katelynn solis Result * DXA BONE DENSITY STUDY 1+ SITS AXIAL SKEL (06/15/2022 10:22 AM EST) Anatomical Region Laterality Modality Bone Densitometr y 03/22/2022 3:15 PM EDT Narrative 06/15/2022 12:44 PM EST BONE DENSITY (DEXA) ? Lumbar Spine T-score is 3.2. ?? (SD relative to 20-29 y/o adult) Z-score is 5.4. ??(SD relative to age matched peers) This is considered normal by WHO criteria. Left Hip T-score is -1.3. Z-score is 0.5. This is considered osteopenia by WHO criteria. There is rotatory dextroscoliosis of the lumbar spine. IMPRESSION: This patient is considered have osteopenia by WHO criteria. [facility] Department of Internal Medicine recommends using National Osteoporosis Foundation (NOF) guidelines in treatment decisions related to osteoporosis. NOF guidelines suggest considering treatment for postmenopausal women and men aged 50 or older presenting with the following: History of hip or vertebral fracture. T-score = -2.5 (DXA) at the femoral neck, total hip, or spine, after appropriate evaluation to exclude secondary causes. Low bone mass (T-score between -1.0 and -2.5 at the femoral neck or spine) AND a 10-year probability of a hip fracture = 3% OR a 10-year probability of a major osteoporosis-related fracture = 20% based on the [place]-adapted WHO algorithm Please note that all treatment decisions require clinical judgment and consideration of individual patient factors, including patient preferences, co-morbidities, previous drug use, risk factors not captured in the FRAX model (e.g., frailty, falls, vitamin D deficiency, increased bone turnover, interval significant decline in bone density) and possible under- or over-estimation of fracture risk by FRAX. Optional alternative screening schedule based on yaritza Jackson., [facility] June 10, 2011 for patients with osteopenia (based on hip BMD T-score) is as follows: * ??advanced osteopenia (T scores -2.00 to -2.49), BMD testing every year * ??moderate osteopenia (T scores -1.50 to -1.99), BMD testing every 5 years mild osteopenia or normal BMD (T scores -1.50 and higher), BMD testing every 15 years Procedure Note Carole Vernon MD - 06/27/2023 BONE DENSITY (DEXA) Lumbar Spine T-score is 3.2. (SD relative to 20-29 y/o adult) Z-score is 5.4. (SD relative to age matched peers) This is considered normal by WHO criteria. Left Hip T-score is -1.3. Z-score is 0.5. This is considered osteopenia by WHO criteria. There is rotatory dextroscoliosis of the lumbar spine. IMPRESSION: This patient is considered have osteopenia by WHO criteria. [facility] Department of Internal Medicine recommendsusing National Osteoporosis Foundation (NOF) guidelines in treatment decisions related toosteoporosis. NOF guidelines suggest considering treatment for postmenopausal women and menaged 50 or older presenting with the following: History of hip or vertebral fracture. T-score = -2.5 (DXA) at the femoral neck, total hip, or spine, afterappropriate evaluation to exclude secondary causes. Low bone mass (T-score between -1.0 and -2.5 at the femoral neck or spine)AND a 10-year probability of a hip fracture = 3% OR a 10-year probability of a majorosteoporosis-related fracture = 20% based on the [place]-adapted WHO algorithm Please note that all treatment decisions require clinical judgment andconsideration of individual patient factors, including patient preferences, co- morbidities,previous drug use, risk factors not captured in the FRAX model (e.g., frailty, falls, vitaminD deficiency, increased bone turnover, interval significant decline in bone density) andpossible under- or over-estimation of fracture risk by FRAX. Optional alternative screening schedule based on monisha Jackson al., NEJMJanuary 2011 for patients with osteopenia (based on hip BMD T-score) is as follows: * advanced osteopenia (T scores -2.00 to -2.49), BMD testing every year * moderate osteopenia (T scores -1.50 to -1.99), BMD testing every 5years mild osteopenia or normal BMD (T scores -1.50 and higher), BMD testingevery 15 years Sung Bahena NP IMG DXA PROCEDURES Final Resul t * Colonoscopy (12/27/2019) [facility] Colonoscopy No interpretation , Abstracted Anatomical Region Laterality Modality Other Historical Provider HEALTH MAINTENANCE Final Result * Hepatitis C Screening (10/05/2012) [facility] Hepatitis C Screening Abstracted Historical Provider HEALTH MAINTENANCE Final Result from Last 3 Months or Most Recently Relevant to Health Maintenance Insurance [employer] Care Teams Tribal Judge Relationship Specialty Start Date End Date Tirso Higgins MD [address] [place] [id number] PCP - General Internal Medicine 05/25/17
--- NOTE | 2024-09-11 14:15 | PM.IMHP ---
History of Present Illness Date of Service: 09/11/24 Attending physician on admission: Arthur Stephen Chief Complaint: ataxia, word finding difficulty Pt with history of hypothyroidism, htn, hld presented to the ED with her daughter for evaluation of stroke like symptoms. Patient states that yesterday at 18:30 (17 hours ago), patient was sitting at home, and when she tried to get out of the chair/couch, she noted that she not have balance. Patient states that she kept leaning towards the left side and was unable to walk straight. Patient needed assistance to walk otherwise she would have fallen. Patient denies any falls or any blood thinners. Patient states that yesterday while this was all happening, while she was trying to explain things to her family, patient had aphasia and dysarthria. The patient's daughter who is at bedside states that 2 days ago, the patient's reported that the patient was having trouble with daily tasks, seemed confused, waxing and waning so they did not think much of it. The in the morning, the patient had improvement in her speech, aphasia dysarthria nearly resolved. However, patient still had trouble walking, leaning towards the left, no falls. No prior history of stroke. Does not use assistive devices. No confusion per patient, upper extremity weakness, paresthesias, dysphagia, vision changes, headache. No palpitations, near syncope, or chest pain. Her daughter reports that prior to symptoms patient was regularly walking. In the ED,no hypertension. Orthostatic vital signs negative. Hematology studies unremarkable. Renal function electrolyte levels normal. LDL at goal at 62. Urinalysis not indicative of infection. CTA of the head/neck negative for any large vessel occlusion or embolus. No significant high-grade stenosis. There is questionable origin of the left FAMILY DEVELOPMENT EXTENSION SPECIALIST. 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 Denies any history of cigarette smoking, no alcohol use or drug use. No history of arrhythmia. Review of Systems Review of Systems: Yes all other systems are reviewed and are negative [facility] Medical History Hypothyroidism Hyperlipidemia Hypertension Social History Alcohol intake: current Alcohol intake frequency: holidays/special occasions only Smoked in Last 30 Days: No Use of substances other than those prescribed or required for medical reasons: No Advance Directives: No Advance Directives Information Provided: No Meds Allergies Allergy/AdvReac Type Severity Reaction Status Date / Time No Known Allergies Allergy Verified 09/11/24 10:02 Physical Exam Vital Signs and Narrative: Vital Signs: Last Vital Signs Temp 99.4 F 09/11/24 14:00 Pulse 92 09/11/24 14:00 Resp 12 09/11/24 14:00 BP 122/55 L 09/11/24 14:00 Pulse Ox 96 09/11/24 14:00 O2 Del Method Room Air 09/11/24 14:00 BMI result Body Mass Index 22.4 Constitutional - Awake and Alert, No apparent distress Eyes - PERRLA, EOMI Cardiovascular - S1S2, RRR, No edema Respiratory - Normal lung expansion, Normal respiratory effort, No respiratory distress, CTA bilaterally Gastrointestinal - NT / ND; +BS; No rebound or guarding Extremities - no calf tenderness bilaterally, no swelling Skin - Warm/Dry Neurological - Alert & oriented x3, dysarthria noted, no aphasia, otherwise CN II-XII in tact, 5/5 strength BUE, 3/5 strength LLE, 4/5 strength RLE, ble ataxia, leaning toward left Results Labs 09/11/24 10:52 09/11/24 10:52 Labs: Laboratory Results - last 24 hr 09/11/24 09/11/24 10:52 12:29 MCV 94.1 MCH 31.1 MCHC 33.1 RDW 13.5 Plt Count 269 MPV 9.8 Immature Gran % (Auto) 0.4 Neut % (Auto) 76.3 H Lymph % (Auto) 14.4 L [place] % (Auto) 8.1 Eos % (Auto) 0.1 Baso % (Auto) 0.7 Lymph # (Auto) 1.1 L [place] # (Auto) 0.6 Eos # (Auto) 0.0 Baso # (Auto) 0.1 Abs Immat Gran (auto) 0.03 Absolute Neuts (auto) 5.6 Absolute Nucleated RBC 0.000 Nucleated RBC % (auto) 0.0 PT 11.3 INR 1.0 APTT 27.5 Anion Gap 13 Estim Creat Clear Calc 74.9 Estimated GFR > 60 Random Glucose 104 Calcium 9.1 Triglycerides 103 Cholesterol 167 LDL Cholesterol, Calc 62 HDL Cholesterol 85 Urine Color Yellow Urine Appearance Clear Urine pH 6.0 Ur Specific [place] >= 1.030 H Urine Protein Negative Urine Glucose (UA) Negative Urine Ketones Negative Urine Blood Negative Urine Nitrite Negative Ur Leukocyte Esterase Trace H Urine RBC 0-2 Urine WBC 0-5 Ur Squamous Epith Cells 0-2 Urine Bacteria None Seen Hyaline Casts 0-2 Imaging Radiologist's Impressions: Impressions Head/Neck CTA 09/11/24 11:36 IMPRESSION: No main cerebral artery occlusion or embolus. No high degree stenosis or dissection. Questionable origin, left FAMILY DEVELOPMENT EXTENSION SPECIALIST. [place] deformity, cervical spine. Consider rheumatoid arthritis. This critical test result is communicated to: Dr. Liseth Guzman via [employer] connect at 12:25 PM on September 11, 2024. Electronically signed by: Dayne Pinto MD 09/11/2024 12:34 PM EDT RP Assessment and Plan (1) Dysarthria: Status: Acute (2) Ataxia: Status: Acute Plan Pt with history of hypothyroidism, htn, hld admitted for further evaluation and management of suspected CVA CVA CTA head/neck negative for any large vessel occlusion or high-grade stenosis. There does not appear to be any acute intracranial abnormality MRI brain ordered Neuro checks, stroke education Passed bedside swallow evaluation Lipid panel. High-dose atorvastatin 40 mg daily Give 325 mg ASA now. Continue 81 mg daily Neurology consult Monitor on telemetry Hypertension Hold antihypertensives in setting of above Hyperlipidemia Increase atorvastatin to 40 mg daily Hypothyroidism Continue levothyroxine DVT prophylaxis-Lovenox Full code Patient requires inpatient stay at least 2 midnights for further evaluation of CVA which will require regular neuro checks, advanced imaging, expert consultation, and close evaluation for any evolving symptoms Quality Stroke Does the patient have a stroke diagnosis?: Yes Reason for No Anti-thrombotic by Day Two: Drug treatment not indicated VTE Prior VTE?: No VTE Risk Level:: Medical - moderate - high VTE Device Contraindication: Treatment Not Indicated VTE Drug Contraindication: N/A - Med Ordered
--- NOTE | 2024-09-11 15:40 | PHA.MEDREC ---
Addendum entered by David Chapin [facility] 09/11/24 16:51: Med rec reviewed Original Note: Pharmacy Consult ? Medication Reconciliation Pharmacy has completed the medication reconciliation. Spoke to patient to confirm med list. Patient was able top confirm all of her medications. Patient states she isn't sure when she last took her medications but is has been more then two weeks.
[2024-09-11] MEDS: Aspirin 325 MG TABLET PO (15:45)
[2024-09-11] MEDS: Enoxaparin Sodium 40 MG/0.4 ML SYRINGE SUBCUT (15:46)
[2024-09-11] MEDS: 0.9 % Sodium Chloride Flush 3 ML SYRINGE IVFLUSH ×2 (15:53→21:19)
[2024-09-12 03:28] VITALS: BP 106/56; PULSE 79; RESP 16; TEMP 37.1; O2SAT 97
[2024-09-12] MEDS: Levothyroxine Sodium 100 MCG TABLET PO (05:15)
[2024-09-12 07:30] VITALS: BP 122/65; PULSE 69; RESP 18; TEMP 37.1; O2SAT 96
[2024-09-12 07:49] LABS: MANUAL DIFF FLAG NO
[2024-09-12 07:50] LABS: Basophils Absolute Auto 0.1 X10*3/uL (0.0-0.2); Basophils Percent Auto 0.8 % (0-2); Eosinophils Absolute Auto 0.1 X10*3/uL (0.0-0.4); Eosinophils Percent Auto 1.1 % (0-4); Hematocrit 38.9 % (37.0-47.0); Hemoglobin 12.9 g/dl (12.0-16.0); Imm Gran Abs Auto 0.02 X10*3/uL (0.00-0.03); Imm Gran Pct Auto 0.3 % (0.0-0.4); Lymphocytes Absolute Auto 1.8 X10*3/uL (1.2-4.9); Lymphocytes Percent Auto 28.9 % (20-40); Mean Corpuscular HGB Conc 33.2 g/dl (31.0-35.0); Mean Corpuscular Hemoglobin 31.3 pg (27.0-33.0); Mean Corpuscular Volume 94.4 fL (80.0-98.0); Mean Platelet Volume 10.1 fL (9.4-12.3); Monocytes Absolute Auto 0.8 X10*3/uL (0.1-1.2); Monocytes Percent Auto 12.7 % (2-11); Neutrophils Absolute Auto 3.5 x10*3/uL (2.0-8.3); Neutrophils Percent Auto 56.2 % (45-73); Platelet Count 263 X10*3/uL (160-400); Red Blood Count 4.12 X10*6/uL (4.20-5.50); Red Cell Distribution Width 13.5 % (11.0-16.0); White Blood Count 6.3 X10*3/uL (4.8-10.8)
--- NOTE | 2024-09-12 08:01 | P.PNIM_ITS ---
Subjective Subjective Date of Service: 09/12/24 Physical Exam 2 Vital Signs: Vital Signs: Last Vital Signs Temp 98.7 F 09/12/24 07:30 Pulse 69 09/12/24 07:30 Resp 18 09/12/24 07:30 BP 122/65 09/12/24 07:30 Pulse Ox 96 09/12/24 07:30 O2 Del Method Room Air 09/12/24 07:30 BMI result Body Mass Index 22.4 Objective Data Active Medications Acetaminophen (Acetaminophen 325 Mg Tablet) 650 mg PO Q6H PRN PRN Reason: Pain, Mild 1-3,fever,headache Aspirin (Aspirin Enteric Coated 81 Mg Tablet.Dr) 81 mg PO DAILY [facility] Atorvastatin Calcium (Atorvastatin Calcium 40 Mg Tablet) 40 mg PO DAILY [facility] Calcium Carbonate (Calcium Carbonate 750 Mg Tab.Chew) 750 mg PO Q4H PRN PRN Reason: Heartburn Enoxaparin Sodium (Enoxaparin Sodium 40 Mg/0.4 Ml Syringe) 40 mg SUBCUT Q24H [facility] Last Admin: 09/11/24 15:46 Dose: 40 mg Documented By: SCIRPOS Levothyroxine Sodium (Levothyroxine Sodium 100 Mcg Tablet) 100 mcg PO DAILY@0600 [facility] Last Admin: 09/12/24 05:15 Dose: 100 mcg Documented By: ANTOINC Magnesium Hydroxide (Milk Of Magnesia 30 Ml Oral.Susp) 30 ml PO DAILY PRN PRN Reason: Constipation Melatonin (Melatonin 3 Mg Tablet) 6 mg PO BEDTIME PRN PRN Reason: Insomnia Ondansetron HCl (Ondansetron Hcl 4 Mg/2 Ml Vial) 4 mg IVPUSH Q8H PRN PRN Reason: Nausea and Vomiting Sodium Chloride (0.9 % Sodium Chloride Flush 3 Ml Syringe) 3 ml IVFLUSH QSHIFT [facility] Last Admin: 09/11/24 21:19 Dose: 3 ml Documented By: ANTOINC Labs 09/12/24 07:27 09/11/24 10:52 Labs: Laboratory Results - last 24 hr 09/11/24 09/11/24 09/12/24 10:52 12:29 07:27 MCV 94.1 94.4 MCH 31.1 31.3 MCHC 33.1 33.2 RDW 13.5 13.5 Plt Count 269 263 MPV 9.8 10.1 Immature Gran % (Auto) 0.4 0.3 Neut % (Auto) 76.3 H 56.2 Lymph % (Auto) 14.4 L 28.9 [place] % (Auto) 8.1 12.7 H Eos % (Auto) 0.1 1.1 Baso % (Auto) 0.7 0.8 Lymph # (Auto) 1.1 L 1.8 [place] # (Auto) 0.6 0.8 Eos # (Auto) 0.0 0.1 Baso # (Auto) 0.1 0.1 Abs Immat Gran (auto) 0.03 0.02 Absolute Neuts (auto) 5.6 3.5 Absolute Nucleated RBC 0.000 0.000 Nucleated RBC % (auto) 0.0 0.0 PT 11.3 INR 1.0 APTT 27.5 Anion Gap 13 Estim Creat Clear Calc 74.9 Estimated GFR > 60 Random Glucose 104 Calcium 9.1 Triglycerides 103 Cholesterol 167 LDL Cholesterol, Calc 62 HDL Cholesterol 85 Urine Color Yellow Urine Appearance Clear Urine pH 6.0 Ur Specific [place] >= 1.030 H Urine Protein Negative Urine Glucose (UA) Negative Urine Ketones Negative Urine Blood Negative Urine Nitrite Negative Ur Leukocyte Esterase Trace H Urine RBC 0-2 Urine WBC 0-5 Ur Squamous Epith Cells 0-2 Urine Bacteria None Seen Hyaline Casts 0-2 Quality Stroke Does the patient have a stroke diagnosis?: Yes Reason for No Anti-thrombotic by Day Two: Drug treatment not indicated VTE Prior VTE?: No VTE Risk Level:: Medical - moderate - high VTE Device Contraindication: Treatment Not Indicated VTE Drug Contraindication: N/A - Med Ordered
[2024-09-12 08:06] LABS: Anion Gap 12 (12-20); Blood Urea Nitrogen 12 mg/dL (9-16); Calcium 9.1 mg/dL (8.4-10.2); Carbon Dioxide 24 mmol/L (22-29); Chloride 108 mmol/L (96-108); Creatinine Clr Calc Pharmacy 69.6; Estimated Glomerular Filt Rate > 60; Glucose Random 91 mg/dL (60-115); Potassium 3.7 mmol/L (3.3-5.1); Sodium 140 mmol/L (135-145)
[2024-09-12] MEDS: Aspirin Enteric Coated 81 MG TABLET.DR PO (09:02)
[2024-09-12] MEDS: Atorvastatin Calcium 40 MG TABLET PO (09:02)
--- NOTE | 2024-09-12 09:03 | MHC.CM.PN ---
CM met with Patient and her Son at bedside, along with PT, who is recommending home with services. Patient and Son/HCP/Wally are agreeable to referrals being made to VNAs contracted with Patient's insurance/[facility]. CM has initiated and will follow for dc planning. Patient lives in a house with her and she was functionally independent NUTRITION COUNSELOR. Son will transport to home at time of dc and PCP is Dr. Tirso Higgins.
--- NOTE | 2024-09-12 09:16 | PM.DS ---
DS: Providers Provider Date of admission: 09/11/24 14:07 Primary care physician: Unknown Physician Consults: 09/11/24 14:12 Consult to Neurology Routine Consulting Provider: [facility] Reason for consultation: cva DS: Diagnosis Discharge Diagnosis (1) Dysarthria: Status: Acute (2) Ataxia: Status: Acute Physical Exam Vital Signs: Vital Signs: Last Vital Signs Temp 98.7 F 09/12/24 07:30 Pulse 69 09/12/24 07:30 Resp 18 09/12/24 07:30 BP 122/65 09/12/24 07:30 Pulse Ox 96 09/12/24 07:30 O2 Del Method Room Air 09/12/24 07:30 BMI result Body Mass Index 22.4 DS: Data Data Completed and Pending Labs on day of discharge: Laboratory Results - last 24 hr 09/11/24 09/11/24 09/12/24 10:52 12:29 07:27 WBC 7.3 6.3 RBC 4.08 L 4.12 L Hgb 12.7 12.9 Hct 38.4 38.9 MCV 94.1 94.4 MCH 31.1 31.3 MCHC 33.1 33.2 RDW 13.5 13.5 Plt Count 269 263 MPV 9.8 10.1 Immature Gran % (Auto) 0.4 0.3 Neut % (Auto) 76.3 H 56.2 Lymph % (Auto) 14.4 L 28.9 [place] % (Auto) 8.1 12.7 H Eos % (Auto) 0.1 1.1 Baso % (Auto) 0.7 0.8 Lymph # (Auto) 1.1 L 1.8 [place] # (Auto) 0.6 0.8 Eos # (Auto) 0.0 0.1 Baso # (Auto) 0.1 0.1 Abs Immat Gran (auto) 0.03 0.02 Absolute Neuts (auto) 5.6 3.5 Absolute Nucleated RBC 0.000 0.000 Nucleated RBC % (auto) 0.0 0.0 PT 11.3 INR 1.0 APTT 27.5 Sodium 139 140 Potassium 3.8 3.7 Chloride 106 108 Carbon Dioxide 24 24 Anion Gap 13 12 BUN 14 12 Creatinine 0.66 0.71 Estim Creat Clear Calc 74.9 69.6 Estimated GFR > 60 > 60 Random Glucose 104 91 Calcium 9.1 9.1 Troponin I High Sens < 2.7 Triglycerides 103 Cholesterol 167 LDL Cholesterol, Calc 62 HDL Cholesterol 85 Urine Color Yellow Urine Appearance Clear Urine pH 6.0 Ur Specific [place] >= 1.030 H Urine Protein Negative Urine Glucose (UA) Negative Urine Ketones Negative Urine Blood Negative Urine Nitrite Negative Ur Leukocyte Esterase Trace H Urine RBC 0-2 Urine WBC 0-5 Ur Squamous Epith Cells 0-2 Urine Bacteria None Seen Hyaline Casts 0-2 Discharge Plan Discharge Anticipated Discharge Date/Time: 09/12/24 09:18 Patient Disposition: Home Health Service Discharge Diagnosis: Ataxia, Dysarthria, Aphasia Referrals: Physician,Unknown J [Primary Care Provider] - 1 Week Discharge Medications: No Action atorvastatin 20 mg tablet 20 mg PO DAILY meloxicam 15 mg tablet 15 mg PO DAILY PRN (Reason: Pain) amlodipine 5 mg tablet 5 mg PO DAILY levothyroxine 100 mcg tablet 100 mcg PO DAILY lisinopril 5 mg tablet 5 mg PO DAILY multivitamin Tablet 1 tab PO DAILY Stand Alone Forms: Patient Portal Discharge page Print Language: Danish
--- NOTE | 2024-09-12 10:16 | MHC.CM.PN ---
[facility] has accepted Patient; SAMEER/Radha is aware and CM will continue to follow.
--- NOTE | 2024-09-12 11:12 | MHC.SP.ADU ---
Referring provider: Radha Flores Reason for Referral: Speech/Language/Cognitiion Type of Treatment: 63903 Standardized Cognitive Performance Testing, per hour Date of Plan of Treatment: 09/11/24 Onset of Symptoms/Illness: 09/11/24 Date Treatment Started: 09/12/24 Medical Diagnosis: Mild anomia, mild dysarthria Primary Speech Language Diagnosis: R47.01 Aphasia Secondary Speech Language Diagnosis: R47.1 Dysarthria History Admission note: Pt with history of hypothyroidism, htn, hld presented to the ED with her daughter for evaluation of stroke like symptoms. Patient states that yesterday at 18:30 (17 hours ago), patient was sitting at home, and when she tried to get out of the chair/couch, she noted that she not have balance. Patient states that she kept leaning towards the left side and was unable to walk straight. Patient needed assistance to walk otherwise she would have fallen. Patient denies any falls or any blood thinners. Patient states that yesterday while this was all happening, while she was trying to explain things to her family, patient had aphasia and dysarthria. The patient's daughter who is at bedside states that 2 days ago, the patient's reported that the patient was having trouble with daily tasks, seemed confused, waxing and waning so they did not think much of it. The in the morning, the patient had improvement in her speech, aphasia dysarthria nearly resolved. However, patient still had trouble walking, leaning towards the left, no falls. No prior history of stroke. Does not use assistive devices. No confusion per patient, upper extremity weakness, paresthesias, dysphagia, vision changes, headache. No palpitations, near syncope, or chest pain. Her daughter reports that prior to symptoms patient was regularly walking. In the ED,no hypertension. Orthostatic vital signs negative. Hematology studies unremarkable. Renal function electrolyte levels normal. LDL at goal at 62. Urinalysis not indicative of infection. CTA of the head/neck negative for any large vessel occlusion or embolus. No significant high-grade stenosis. 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 Denies any history of cigarette smoking, no alcohol use or drug use. No history of arrhythmia. Medical History: Other: Medication List: Recent Hospitalizations: No Respiratory Needs: Room Air Patient Orientation: Person, Place Only Social History: Employment Status: Retired Highest level of education obtained: Current Living Situation: Assistive Devices in use: Comment: Past Speech Language Therapy: Other Therapies Seen in Current Calendar Year: None Other: Swallowing History: Dysphagia Specific: Within Functional Limits Comments: Pre-eval Risk for Aspiration: Pre-evaluation Dietary Consistencies: Regular Pre-eval Liquid Intake: Thin Pre-eval Medication Intake: Reported Speech, Language, Cognition difficulties: Attention Memory Speaking Comments: Pt presents with mild anomia characterized by infrequent repetitions of words. Intermittent but brief, mild dysarthria evident in slowed coordination of oromotor sequences. Pt exhibits strengths in verbal processing and higher level language understanding/use (i.e. sarcasm, jokes). Pt attention was adequate during evaluation, but pt reported she has noticed difficulties in sustaining attention. Pt also endorses memory difficulties that she attributes to age-related changes; though she questioned HOSPITAL SUPERVISOR about characteristics of Alzheimer's. Pt son present during evaluation; HOSPITAL SUPERVISOR provided education on neurological functions related to communication and reviewed results of pt performance with pt and son. Anticipate pt will experience spontaneous recovery in word finding and motor speech production. HOSPITAL SUPERVISOR recc pt contact MD if difficulties persist or worsen to request formal speech/language/cognition evaluation. Quality of Life: Patient Stated Goal of Speech-Language Therapy: Assessment Speech Production: Aphasic: Fluent Articulate Slow Within Functional Limits Clinical Impression: Intact Observations: Motor speech production intact, with 90% intelligibility maintained in presence of mild imprecision of articulated syllables within a phrase. Pt is aware of errors and self-corrects. Pt is able to repeat to clarify her message independently. Informal Voice Assessment: Voice Loudness: Normal Voice Nasal Resonance: Normal Voice Oral Resonance: Normal Voice Phonatory-based Quality: Normal Voice Pitch: Normal Voice Other Observations: Clinical Impression: Clinicial Observations: Tests of Speech & Lang Adults: BDAE Clinical Impression: Intact Observations: Pt presents with minimal discernible speech difficulty, though she experiences infrequent dysarthric speech across syllables. Phrase length, grammatical form, prosoody and voicing WFL. Mild word finding challenges reveal some obvious loss of fluency of speech, without significant limitation on ideas expressed or form of expression. Tests of Cognition: Clinical Impression: Observations: Augmentative and Alternative Communication: Observations: Impressions and Recommendations Summary: Impact on Daily Function/Activity Limitations: Daily Activities: Mild Interpersonal Interactions: Mild Education: Employment: Community: Mild Prognosis for Improvement: Good Comment: Recommendation for Speech Therapy: Outpatient Speech Therapy or Speech Therapy through [facility] Care Provider: Patient Education: Completed: Patient/Caregiver Education: Described Results of Evaluation Patient expressed understanding of evaluation Patient agrees with goals and treatment plan Family/Caregivers expressed understanding of results Comments/Barriers to Learning: Quarry Supervisor Open Pit Clinican/Clinical Fellow: Supervisory Statement: Speech Language Pathologist: Melony Cox M.S., CCC-HOSPITAL SUPERVISOR
[2024-09-12 11:29] VITALS: BP 117/71; PULSE 82; RESP 20; TEMP 37.2; O2SAT 92
--- NOTE | 2024-09-12 14:20 | MHC.CM.PN ---
Addendum entered by Amber Deal 09/13/24 07:45: Patient was dc to home after CM hours, with [facility](face to face and dc summary have been sent this morning to [facility]). Original Note: CM met with Patient and her Son/HCP; both are agreeable to [facility] for home services. CM will follow.
[2024-09-12 15:49] VITALS: BP 110/62; PULSE 89; RESP 18; TEMP 37.3; O2SAT 95
--- NOTE | 2024-09-12 18:18 | P.DS_ITS ---
DS: Providers Provider Date of Service: 09/12/24 Date of admission: 09/11/24 14:07 Date of discharge: 09/12/24 Primary care physician: Unknown Physician Admitting clinician: Radha Flores Attending physician on admission: Arthur Stephen Consults: 09/11/24 14:12 Consult to Neurology Routine Consulting Provider: [facility] Reason for consultation: cva Attending physician on discharge: Oleg Doran Discharging clinician: Radha Flores DS: Diagnosis Discharge Diagnosis (1) Dysarthria: Status: Acute (2) Ataxia: Status: Acute DS: Summary Hospital Course Hospital Course: HPI on admission 09/12: Chief Complaint: ataxia, word finding difficulty Pt with history of hypothyroidism, htn, hld presented to the ED with her daughter for evaluation of stroke like symptoms. Patient states that yesterday at 18:30 (17 hours ago), patient was sitting at home, and when she tried to get out of the chair/couch, she noted that she not have balance. Patient states that she kept leaning towards the left side and was unable to walk straight. Patient needed assistance to walk otherwise she would have fallen. Patient denies any falls or any blood thinners. Patient states that yesterday while this was all happening, while she was trying to explain things to her family, patient had aphasia and dysarthria. The patient's daughter who is at bedside states that 2 days ago, the patient's reported that the patient was having trouble with daily tasks, seemed confused, waxing and waning so they did not think much of it. The in the morning, the patient had improvement in her speech, aphasia dysarthria nearly resolved. However, patient still had trouble walking, leaning towards the left, no falls. No prior history of stroke. Does not use assistive devices. No confusion per patient, upper extremity weakness, p aresthesias, dysphagia, vision changes, headache. No palpitations, near syncope, or chest pain. Her daughter reports that prior to symptoms patient was regularly walking. In the ED,no hypertension. Orthostatic vital signs negative. Hematology studies unremarkable. Renal function electrolyte levels normal. LDL at goal at 62. Urinalysis not indicative of infection. CTA of the head/neck negative for any large vessel occlusion or embolus. No significant high-grade stenosis. 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 Denies any history of cigarette smoking, no alcohol use or drug use. No history of arrhythmia. Hospital course: Hospital course uneventful. Pt presented with aphasia, dysarthria, and LLE weakness/gait ataxia. Aphasia had resolved prior to admission though dysarthria persisted as well as LLE weakness and ataxia. She underwent MRI which was negative for any acute CVA but showed possible hydrocephalus. Pt likely has underlying cognitive disorder but no profound confusion, oriented x4 but slow in speech. Seen by neurology recommending continuing asa and statin for possible TIA, unlikely hydrocephalus given presentation. Seen by BARGE LOADER and PT recommending outpt services. She did pass swallow evaluation. LDL was at goal but given concerns for TIA recommend increasing atorvastatin to 40mg daily. Continue ASA on discharge. Family is concerned about possible dementia. Recommend follow up with PCP for MOCA and MMSE and further evaluation. Can also follow up with neurology on outpt basis for further evaluation. No further inpt workup recommended by neurology. On discharge she should resume her almodipine and lisinopril as prescribed. Continue levothyroxine for hypothyroidism. During admission vitals stable, no significant hypertension. Labs also unremarkable, no evidence of infection. Follow up with PCP and neurology as above. referral for home services placed. Status at Discharge Functional status at discharge: independent ambulation Overall status at discharge: patient is progressing back to baseline Time Attestation Discharge Coordination Time (in mins): 40 Quality: Safe Use of Opioids Does Pt have an Active Cancer Diagnosis on the Problem List?: No Quality: Stroke Does the patient have a stroke diagnosis?: No Physical Exam Vital Signs: Vital Signs: Last Vital Signs Temp 99.1 F 09/12/24 15:49 Pulse 89 09/12/24 15:49 Resp 18 09/12/24 15:49 BP 110/62 09/12/24 15:49 Pulse Ox 95 09/12/24 15:49 O2 Del Method Room Air 09/12/24 15:49 BMI result Body Mass Index 22.4 DS: Data Data Completed and Pending Labs on day of discharge: Laboratory Results - last 24 hr 09/12/24 07:27 WBC 6.3 RBC 4.12 L Hgb 12.9 Hct 38.9 MCV 94.4 MCH 31.3 MCHC 33.2 RDW 13.5 Plt Count 263 MPV 10.1 Immature Gran % (Auto) 0.3 Neut % (Auto) 56.2 Lymph % (Auto) 28.9 [place] % (Auto) 12.7 H Eos % (Auto) 1.1 Baso % (Auto) 0.8 Lymph # (Auto) 1.8 [place] # (Auto) 0.8 Eos # (Auto) 0.1 Baso # (Auto) 0.1 Abs Immat Gran (auto) 0.02 Absolute Neuts (auto) 3.5 Absolute Nucleated RBC 0.000 Nucleated RBC % (auto) 0.0 Sodium 140 Potassium 3.7 Chloride 108 Carbon Dioxide 24 Anion Gap 12 BUN 12 Creatinine 0.71 Estim Creat Clear Calc 69.6 Estimated GFR > 60 Random Glucose 91 Calcium 9.1 Discharge Plan Discharge Anticipated Discharge Date/Time: 09/12/24 09:18 Patient Disposition: Home Health Service Discharge Diagnosis: Ataxia, Dysarthria, Aphasia Referrals: [facility] [Outside] - 1 Week Wally Hanley MD [Physician] - 1 Week Physician,Aristeo J [Primary Care Provider] - 1 Week Discharge Medications: New atorvastatin 40 mg Tablet 40 mg PO DAILY Qty: 90 0RF aspirin 81 mg Tablet,Delayed Release (Dr/Ec) 81 mg PO DAILY Qty: 90 0RF Continued meloxicam 15 mg tablet 15 mg PO DAILY PRN (Reason: Pain) amlodipine 5 mg tablet 5 mg PO DAILY levothyroxine 100 mcg tablet 100 mcg PO DAILY lisinopril 5 mg tablet 5 mg PO DAILY multivitamin Tablet 1 tab PO DAILY Discontinued atorvastatin 20 mg tablet 20 mg PO DAILY Discharge Orders: Discharge Order (Routine); Ordered 09/12/24 Ordered By: Radha Flores Diet: Advance to usual diet Activity on Discharge: As tolerated Stand Alone Forms: Patient Portal Discharge page Print Language: Divehi Care Plan Goals: Continue physical therapy, occupational therapy, speech therapy for ongoing management of gait instability and slurred speech Health Concerns: ? TIA Unspecified cognitive impairment Gait instability, ataxia Plan of Treatment: MRI negative for any acute stroke Despite negative MRI, symptoms could be attributed to a TIA however given ongoing symptoms, recommend outpatient follow-up with Neurology/pcp Increase atorvastatin to 40 mg daily and take a baby aspirin daily Recommend outpatient follow-up with PCP for further evaluation of cognitive impairment with MOCA and MMSE PT/OT/BARGE LOADER referrals placed Assessment: See discharge summary. See above Patient Instructions: Self Care Measures After a Stroke (DC) Discharge Date/Time: 09/12/24 19:16
--- NOTE | 2024-09-12 18:21 | P.CNNE_ITS ---
History of Present Illness Data of Consult Service Date: 09/12/24 Primary Care Provider: Unknown Physician HPI Reason for consult: balance and speech problems This is a 73 yr old woman with history of hypothyroidism, htn, hld who presented to the ED with her daughter for evaluation of stroke like symptoms. Patient states that yesterday at 18:30 when she tried to get out of the chair/couch, she noted that she did not have good balance. Patient states that she kept leaning towards the left side and was unable to walk straight. Patient needed assistance to walk otherwise she would have fallen. Patient denies any falls or any blood thinners. While she was trying to explain things to her family, patient had trouble finding words and express herself. The speech is back to normal an dher balance is now fine. No prior history of stroke. No trouble with gait before this and no bladder control problems. Does not use assistive devices. No upper extremity weakness, paresthesias, dysphagia, vision changes, headache. No palpitations, near syncope, or chest pain. Her daughter reports that prior to symptoms patient was regularly walking. CTA head and neck negative. MRI shows no acute stroke. Mild microvascular white matter disease including brainstem. Posterior ventriculomegaly L>R which appears chronic and an incidental finding unrelated to current transient symptoms. . [facility], [facility] Past Medical History Medical History Hypothyroidism Hyperlipidemia Hypertension Social History Social History Household Members: Spouse Housing: House Do you presently have visiting nurse or other home services: No Alcohol intake: current Alcohol intake frequency: holidays/special occasions only Patient Tobacco Use Status: Never used Tobacco service: No Meds Allergies Allergy/AdvReac Type Severity Reaction Status Date / Time No Known Allergies Allergy Verified 09/11/24 10:02 Active Medications: Current Medications Acetaminophen (Acetaminophen 325 Mg Tablet) 650 mg PO Q6H PRN PRN Reason: Pain, Mild 1-3,fever,headache Aspirin (Aspirin Enteric Coated 81 Mg Tablet.) 81 mg PO DAILY [facility] Last Admin: 09/12/24 09:02 Dose: 81 mg Atorvastatin Calcium (Atorvastatin Calcium 40 Mg Tablet) 40 mg PO DAILY [facility] Last Admin: 09/12/24 09:02 Dose: 40 mg Calcium Carbonate (Calcium Carbonate 750 Mg Tab.Chew) 750 mg PO Q4H PRN PRN Reason: Heartburn Enoxaparin Sodium (Enoxaparin Sodium 40 Mg/0.4 Ml Syringe) 40 mg SUBCUT Q24H [facility] Last Admin: 09/12/24 17:19 Dose: Not Given Levothyroxine Sodium (Levothyroxine Sodium 100 Mcg Tablet) 100 mcg PO DAILY@0600 [facility] Last Admin: 09/12/24 05:15 Dose: 100 mcg Magnesium Hydroxide (Milk Of Magnesia 30 Ml Oral.Susp) 30 ml PO DAILY PRN PRN Reason: Constipation Melatonin (Melatonin 3 Mg Tablet) 6 mg PO BEDTIME PRN PRN Reason: Insomnia Ondansetron HCl (Ondansetron Hcl 4 Mg/2 Ml Vial) 4 mg IVPUSH Q8H PRN PRN Reason: Nausea and Vomiting Sodium Chloride (0.9 % Sodium Chloride Flush 3 Ml Syringe) 3 ml IVFLUSH QSHIFT [facility] Last Admin: 09/12/24 16:29 Dose: Not Given Home Medications ?Medication ?Instructions ?Recorded ?Confirmed ?Last Taken ?Type amlodipine 5 mg tablet 5 mg PO DAILY 09/11/24 09/11/24 Unknown History levothyroxine 100 mcg tablet 100 mcg PO DAILY 09/11/24 09/11/24 Unknown History lisinopril 5 mg tablet 5 mg PO DAILY 09/11/24 09/11/24 Unknown History meloxicam 15 mg tablet 15 mg PO DAILY PRN Pain 09/11/24 09/11/24 Unknown History multivitamin 1 tab PO DAILY 09/11/24 09/11/24 Unknown History Physical Exam 2 Vital Signs: Vital Signs: Last Vital Signs Temp 99.1 F 09/12/24 15:49 Pulse 89 09/12/24 15:49 Resp 18 09/12/24 15:49 BP 110/62 09/12/24 15:49 Pulse Ox 95 09/12/24 15:49 O2 Del Method Room Air 09/12/24 15:49 BMI result Body Mass Index 22.4 Neuro: Other: Alert and oriented x3 . No speech problems . Non focal exam including gait Results Labs 09/12/24 07:27 09/12/24 07:27 Labs: Short CBC 09/12/24 Range/Units 07:27 WBC 6.3 (4.8-10.8) X10*3/uL Hgb 12.9 (12.0-16.0) g/dl Hct 38.9 (37.0-47.0) % Plt Count 263 (160-400) X10*3/uL [facility] 09/12/24 07:27 Sodium 140 Potassium 3.7 Chloride 108 Carbon Dioxide 24 BUN 12 Creatinine 0.71 Calcium 9.1 Assessment and Plan (1) Ataxia: Status: Acute Transient neurological sx Possible a TIA. The ventriculomegaly is an unrelated incidental finding possibly developmental or from central atrophy . She has no signs or symptoms of hydrocephalus. The patient can be discharged on ASA 81 mg and her BP meds. (2) Dysarthria: Status: Acute Procedures Date of Service Date of Service: 09/12/24
--- NOTE | 2024-09-12 20:25 | P.F2F_ITS ---
Service Date Service Date: 09/12/24 Encounter Date of encounter: 09/12/24 Reasons for Services Signs and symptoms assessed: Possible TIA. Persistent dysarthria and gait ataxia Reason for physical therapy: home safety and mobility, therapeutic exercises, gait/transfer training and assess need for DME Reason for occupational therapy: home safety and mobility, therapeutic exercises, gait/transfer training and ADL training Reason for speech therapy: speech impairment and cognitive impairment Homebound: Leaving the home is medically contraindicated at this time without the asist of a device and/or another person due th the listed conditions above and below. Reason homebound: unsteady gait / fall risk, leg weakness, poor balance / fall risk, cognitively impaired / unsafe and weakness related to hospital stay Certification: Based on the above findings, I certify that this patient is confined to the home and needs intermittent retirement care, physical therapy and/or speech therapy, or continues to need occupational therapy. The patient is under my care, and I have initiated the establishment of the plan of care. The patient will be followed by a physician who will periodically review the plan of care. Time Spent With Patient Time: Total time managing care of this patient today ____ minutes.
== END 2024-09-12 19:16 | disposition home health service (06) | DRG 47 ==
LOC: HO.ED 13:58 → HO.EDOVER 14:20 → HO.IMC 15:36
PROVIDERS: Admitting Provider Physician Assistant; Emergency Provider Emergency Medicine; Visit Provider Physician Assistant
DX: G45.9 Transient cerebral ischemic attack, unspecified (principal); G13.8 Systemic atrophy primarily affecting central nervous system in other diseases classified elsewhere; E03.9 Hypothyroidism, unspecified; R47.1 Dysarthria and anarthria; E78.5 Hyperlipidemia, unspecified; R27.0 Ataxia, unspecified; I10 Essential (primary) hypertension; Z79.890 Hormone replacement therapy; Z79.899 Other long term (current) drug therapy
CPT/HCPCS: 36415; 70496; 70498; 70551; 80048; 80061; 81001; 84484; 85025; 85610; 85730; 93005; 96125; 97162; 97166; 99285; J1650; Q9967

== ENCOUNTER → 2024-09-11 10:49 | Outpatient (BNV) | payer OTHER, SELFPAY | PROVIDERS: Admitting Provider Physician Assistant; Emergency Provider Emergency Medicine; Visit Provider Internal Medicine | DX: R94.31 Abnormal electrocardiogram [ECG] [EKG] (principal); I63.9 Cerebral infarction, unspecified | CPT/HCPCS: 93010 ==

== ENCOUNTER → 2024-09-11 11:13 | Outpatient (BNV) | payer OTHER, SELFPAY | PROVIDERS: Emergency Provider Emergency Medicine; Visit Provider Radiology Diagnostic Radiology | DX: I69.322 Dysarthria following cerebral infarction (principal); I67.82 Cerebral ischemia | CPT/HCPCS: 70496; 70498; 70551 ==

== ENCOUNTER → 2024-09-11 14:07 | Outpatient (BNV) | payer OTHER, SELFPAY | PROVIDERS: Admitting Provider Physician Assistant; Emergency Provider Emergency Medicine; Visit Provider Physician Assistant | DX: R47.1 Dysarthria and anarthria (principal); R27.0 Ataxia, unspecified | CPT/HCPCS: 99223; 99239; G0180 ==

== ENCOUNTER → 2024-09-11 14:07 | Outpatient (BNV) | payer OTHER, SELFPAY | PROVIDERS: Admitting Provider Physician Assistant; Emergency Provider Emergency Medicine; Visit Provider Psychiatry & Neurology Neurology | DX: R27.0 Ataxia, unspecified (principal); R47.1 Dysarthria and anarthria | CPT/HCPCS: 99222 ==